=== PATIENT | female | born 1985 | race Caucasian/White ===

== ENCOUNTER 2016-11-18 12:46 | Emergency (ER) | payer SELFPAY ==
[2016-11-18 12:52] VITALS: BP 157/88; BMI 39.7
[2016-11-18] MEDS ORDERED: ULTRAM PO ONE (13:32)
[2016-11-18] MEDS ORDERED: XYLOCAINE JELLY TOP ONE (13:32)
[2016-11-18] MEDS ORDERED: KEFLEX CAP 500 MG PO ONE ×2 (13:32→13:49)
--- NOTE | 2016-11-18 13:37 | DR.GENAD ---
HPI - PCP Primary Care Physician: NFD - Complaint/Symptoms Chief Complaint Doctors Comments: Patient states she broke a right upper took a week ago with pain and swelling or the gum. States she cannot afford to go to a dentist and has no local doctor. she denies fever, chills, cold, cough, nausea or vomiting. states she has taken Keflex and Ultram before without problems. States she has been having clumps coming from her tooth. she is still able to eat and drink without problems. Chief Complaint:: VERY SWOLLEN JAW, TOOTH BROKEN AND HURTING VERY BAD. Self Treatment fo Chief Complaint: TOOK OTC, HEATING PAD - Nurses notes reviewed Nurses Notes Review: Yes - Source History Provided: Patient - Mode of Arrival Mode of Arrival: Ambulatory - Timing Onset of Chief Complaint: 11/17/16 Came on: Gradually - Duration Duration: Constant How lon Duration: Days - Location Location: right upper molar - Severity Severity: Moderate - Modifying Factors Worsens:: chewing Improves:: nothing PMH - PMH Past Medical History: Yes Past Medical History: Hypertension Past Surgical History: Yes Surgical History: No History - Family History History of Family Medical Conditions: Yes Family Medical History: [place], Sudden Cardiac , Hypertension - Social History Type of Tobacco Use: Cigarettes Does any household member use tobacco: Yes Alcohol Use: None Do you use any recreational Drugs:: No Lives With: Friend Lives Where: Home - infectious screening In the last 2 months have you had wt loss of >10#?: NO Have you had fever, night sweats or hemotysis?: No Have you traveled outside the country in the last 6 months?: No Isolation: Standard ROS - Review of Systems Constitutional: No Symptoms Reported. negative: See HPI, Chills, Diaphoresis, Fever, Malaise, Weakness, Irritable, Fatigue, Loss of Appetite, Other Eyes: No Symptoms Reported. negative: See HPI, Eye Pain, Blurred Vision, Tearing, Discharge, Photophobia, Diplopia, Other ENTM: No Symptoms Reported, Nose Congestion, Mouth Pain, Loose Teeth. negative : See HPI, Ear Pain, Ear Discharge, Pulling on Ears, Hearing Loss, Nose Pain, Nose Discharge, Epistaxis, Mouth Swelling, Drooling, Throat Pain, Throat Swelling, Ear Foreign Body Respiratoy: No Symptoms Reported. negative: See HPI, Productive Cough, Non- Productive Cough, Moist Cough, Dry Cough, Hacking Cough, Barking Cough, Brassy Cough, Orthopnea, Short of Breath, Stridor, Wheezing, Hemoptysis, Other Cardiovascular: No Symptoms Reported. negative: See HPI, Chest Pain, Edema, Palpitations, Syncope, Cyanosis, Skin Mottling, Other Gastrointestinal/Abdominal: No Symptoms Reported. negative: See HPI, Abdominal Pain, Constipation, Diarrhea, Nausea, Vomiting, Food Intolerance, Other Genitourinary: No Symptoms Reported. negative: See HPI, Discharge, Dysuria, Frequency, Hematuria, Pain, Bleeding, Other Neurological: No Symptoms Reported Musculoskeletal: No Symptoms Reported Integumentary: No Symptoms Reported Hematologic/Lymphatic: No Symptoms Reported Endocrine: No Symptoms Reported Psychiatric: No Symptoms Reported PE - Vital Signs Vitals: Temperature 98.7 F Pulse Rate 92 Respiratory Rate 20 Blood Pressure 157/88 O2 Sat by Pulse Oximetry 99 - General Limitations: No Limitations General Appearance: Alert, In Distress (mild), Obese - Head Head Exam: Normal Inspection, Atraumatic, Normocephalic - Eyes Eye exam: Normal Appearance, PERRL, EOMI. negative: Scleral Icterus, Conjunctival Injection, Nystagmus, Miosis, Mydrasis, Periorbital Swelling, Periorbital Tenderness, Other - ENT ENT Exam: Normal Exam, Normal Oropharynx, Normal External Ear Exam (dental caries right upper 2nd molar with swelling around the gum;no erythema), Mucous Membranes Moist, TM's Normal Bilaterally External Ear Exam: Normal External Inspection. negative: Auricular Hematoma, Auricular Trauma, Mastoid Tenderness, Pain with Movement, External Tenderness, Periauricular Adenopathy, Other TM/Canal Exam: Bilateral Normal Nose Exam: Normal Nose Exam Mouth Exam: Normal Inspection Throat Exam: Normal Inspection - Neck Neck Exam: Normal Inspection, Full ROM, Trachea Midline - Chest Chest Inspection: Normal Inspection, Symmetric Chest Wall Rise. negative: Tenderness, Rash, Abscess, Other - Respiratory Respiratory Exam: Normal Lung Sounds Bilat Respiratory Exam: Bilateral Clear to Auscultation - Cardiovascular Cardiovascular Exam: Regular Rate, Normal Rhythm, Normal Heart Sounds - Abdominal Exam Abdominal Exam: Normal Inspection, Normal Bowel Sounds, Soft. negative: Distention, Tenderness, Guarding, Rebound, Rigidity, Dimnished Bowel Sounds, Hyperactive Bowel Sounds, Hypoactive Bowel Sounds, Organomegaly, Trauma, Incision, Ascites, Mass, Bruit, Pulsatile Mass, Hernia, Other Abdominal Tenderness: negative: RUQ, RLQ, LUQ, LLQ, Epigastrium, Suprapubic, Diffuse, Mild, Moderate, Severe, Other - Extremities Extremities Exam: Normal Inspection, Full ROM, Normal Capillary Refill. negative: Tenderness, Edema, Joint Swelling, Calf Tenderness, Other - Back Back Exam: Normal Inspection, Full ROM. negative: Tenderness, (R) CVA Tenderness, (L) CVA Tenderness, Muscle Spasm, Paraspinal Tenderness, Vertebral Tenderness, Rashes, (R) Sciatic Notch Tenderness, (L) Sciatic Notch Tendern, (R ) Straight Leg Raise, (L) Straight Leg Raise, Other - Neurologic Neurological Exam: Alert, Oriented X3, CN II-XII Intact, Normal Gait, Reflexes Normal - Psychiatric Psychiatric Exam: Normal Affect, Normal Mood. negative: Depressed, Agitated, Anxious, Flat Affect, Manic, Homicidal Ideation, Suicidal Ideation, Other - Skin Skin Exam: Warm, Dry, Intact, Normal Color - Diagnosis Discharge Problem: Dental caries, Gingivitis, Pain, dental - Discharge Plan Disposition: HOME, SELF-CARE Condition: Stable Prescriptions: Cephalexin [KEFLEX CAP 500 MG *] 500 mg PO TID #30 cap Tramadol HCl [ULTRAM 50 MG *] 50 mg PO Q8H PRN #24 tab PRN Reason: Pain - Follow ups/Referrals Follow ups/Referrals: NFD,None [Primary Care Provider] - 3 days GEORGINA PLATA [STAFF PHYSICIAN] - 3 days - Instructions Instructions: Dental Pain, Dental Caries
[2016-11-18] MEDS ORDERED: XYLOCAINE VISCOUS ONE (13:49)
[2016-11-18] MEDS ORDERED: ULTRAM ONE (13:50)
== END 2016-11-18 14:00 | disposition home or self-care (01) ==
LOC: ER 12:57
DX: K02.9 Dental caries, unspecified (principal); K05.10 Chronic gingivitis, plaque induced; K08.89 Other specified disorders of teeth and supporting structures
CPT/HCPCS: 99282

== ENCOUNTER 2017-08-25 15:46 | Emergency (ER) | payer SELFPAY ==
[2017-08-25 15:50] VITALS: BP 136/74; BMI 40.1
[2017-08-25] MEDS ORDERED: XYLOCAINE VISCOUS MT STA (16:27)
[2017-08-25] MEDS ORDERED: KEFLEX CAP 500 MG PO ONE ×2 (16:27→16:30)
[2017-08-25] MEDS ORDERED: ULTRAM PO ONE (16:28)
[2017-08-25] MEDS ORDERED: ULTRAM ONE (16:30)
--- NOTE | 2017-08-25 16:33 | DR.TOOTHHP ---
HPI - Time Seen Time seen: 16:29 - Primary Care Physician Primary Care Physician: NFD - Complaints Chief Complaint Doctors Comments: Patient is complaining of right upper jaw pain and toothache for the past week getting worst. States she has been taking over the counter medicines without improvement and she cannot get into to see the dentist for two weeks. States she has been trying to get into the [facility] but they have a four week waiting time. States she has been taking Motrin 800mg, Alieve, Oral Jel and various tooth jels without improvement. States she was eating peanuts and her tooth broke and has a whole in the center and has been hurting since. She denies fever, chills, nausea or vomiting. Chief Complaint:: PT. C/O SEVERE TOOTH PAIN AND RIGHT SIDED JAW PAIN X 1 WEEK. PT. STATES I THINK MY TOOTH IS BROKEN. IT IS AN UPPER TOOTH ON THE RIGHT SIDE. - Reviewed Nurses Notes Reviewed: Yes - Source History Provided: Patient - Mode of Arrival Mode of Arrival: Ambulatory - Timing Onset of Chief Complaint: 08/20/17 - Severity Pain Severity: Moderate - Location Location:: Right, Upper, Tooth - Context Onset:: Spontaneous, Following Trauma (eating peanuts), Previous Caries History Of: None - Modifying Factors Worsens:: Cold, Chewing Improves:: Analagesics havn't helped - Associated Signs and Symptoms Associated signs and symptoms: None PMH - PMH Past Medical History: Yes Past Medical History: Hypertension Past Surgical History: No Surgical History: No History - Family History History of Family Medical Conditions: Yes Family Medical History: [place], Sudden Cardiac , Hypertension - Social History Does patient currently use any type of tobacco product: Yes Have you used tobacco products in the last 12 months: Yes Type of Tobacco Use: Cigarettes Does any household member use tobacco: No Alcohol Use: None Do you use any recreational Drugs:: No Lives With: Friend Lives Where: Home - infectious screening In the last 2 months have you had wt loss of >10#?: NO Have you had fever, night sweats or hemotysis?: No Have you traveled outside the country in the last 6 months?: No Isolation: Standard ROS - Review of Systems Constitutional: No Symptoms Reported. negative: See HPI, Chills, Diaphoresis, Fever, Malaise, Weakness, Irritable, Fatigue, Loss of Appetite, Other Eyes: No Symptoms Reported ENTM: No Symptoms Reported, Mouth Pain, Loose Teeth Respiratoy: No Symptoms Reported Cardiovascular: No Symptoms Reported. negative: See HPI, Chest Pain, Edema, Palpitations, Syncope, Cyanosis, Skin Mottling, Other Gastrointestinal/Abdominal: No Symptoms Reported. negative: See HPI, Abdominal Pain, Constipation, Diarrhea, Nausea, Vomiting, Food Intolerance, Other Genitourinary: No Symptoms Reported Neurological: No Symptoms Reported Musculoskeletal: No Symptoms Reported Integumentary: No Symptoms Reported Hematologic/Lymphatic: No Symptoms Reported Endocrine: No Symptoms Reported Psychiatric: No Symptoms Reported PE - Vital Signs Vitals: Temperature 98.6 F Pulse Rate 92 Respiratory Rate 20 Blood Pressure 136/74 O2 Sat by Pulse Oximetry 97 - General Limitations: No Limitations General Appearance: Alert, In Distress (moderate) - Head Head Exam: Normal Inspection, Atraumatic, Normocephalic - Eyes Eye exam: Normal Appearance, PERRL, EOMI. negative: Scleral Icterus, Conjunctival Injection, Nystagmus, Miosis, Mydrasis, Periorbital Swelling, Periorbital Tenderness, Other - ENT ENT Exam: Normal Exam, Normal Oropharynx, Normal External Ear Exam, Mucous Membranes Moist, TM's Normal Bilaterally (right upper molar,third with cavity, necrotic tooth broken to gum level; no discharge) External Ear Exam: Normal External Inspection TM/Canal Exam: Bilateral Normal Nose Exam: Normal Nose Exam Mouth Exam: Normal Inspection Teeth Exam: Dental Caries, Fractured Tooth # (16), Dental Tenderness # Throat Exam: Normal Inspection. negative: Tonsillar Erythema, Tonsillomegaly, Tonsillar Exudate, R Peritonsillar Mass, L Peritonsillar Mass, Muffled Voice, Other - Neck Neck Exam: Normal Inspection, Full ROM, Trachea Midline. negative: Tenderness, Meningismus, Lymphadenopathy, Thyromegaly, Other - Chest Chest Inspection: Normal Inspection, Symmetric Chest Wall Rise - Respiratory Respiratory Exam: Normal Lung Sounds Bilat Respiratory Exam: Bilateral Clear to Auscultation - Cardiovascular Cardiovascular Exam: Regular Rate, Normal Rhythm, Normal Heart Sounds - Abdominal Exam Abdominal Exam: Normal Inspection, Normal Bowel Sounds, Soft Abdominal Tenderness: negative: RUQ, RLQ, LUQ, LLQ, Epigastrium, Suprapubic, Diffuse, Mild, Moderate, Severe, Other - Extremities Extremities Exam: Normal Inspection, Full ROM, Normal Capillary Refill. negative: Tenderness, Edema, Joint Swelling, Calf Tenderness, Other - Back Back Exam: Normal Inspection, Full ROM - Neurologic Neurological Exam: Alert, Oriented X3, CN II-XII Intact, Normal Gait, Reflexes Normal - Psychiatric Psychiatric Exam: Normal Affect, Normal Mood - Skin Skin Exam: Warm, Dry, Intact, Normal Color - Diagnosis Discharge Problem: Dental caries, Toothache, Gingivitis - Discharge Plan Disposition: HOME, SELF-CARE Condition: Stable Prescriptions: Cephalexin [KEFLEX CAP 500 MG *] 500 mg PO TID #30 cap Tramadol HCl [ULTRAM 50 MG *] 50 mg PO Q6H PRN #12 tab PRN Reason: Pain - Follow ups/Referrals Follow ups/Referrals: LORENZO,Denny [Primary Care Provider] - 3 days VERÓNICA CORREIA [STAFF PHYSICIAN] - 3 days - Instructions Instructions: Diet and Dental Disease, Tooth Injuries, Preventive Dental Care, Adult
[2017-08-25] MEDS ORDERED: XYLOCAINE VISCOUS ONE (16:45)
== END 2017-08-25 16:48 | disposition home or self-care (01) ==
LOC: ER 15:53
DX: K02.9 Dental caries, unspecified (principal); K08.89 Other specified disorders of teeth and supporting structures; K05.10 Chronic gingivitis, plaque induced
CPT/HCPCS: 99282